=== PATIENT | male | born 1965 | race Two or more races ===

== ENCOUNTER 2023-04-28 22:21 | Emergency (ER) | payer SELFPAY ==
[~2023-04-28] VITALS: Ht 172.7 cm; Wt 74.8 kg
[2023-04-28 22:26] VITALS: BP 117/75; PULSE 98; RESP 16; TEMP 97.2; O2SAT 99
[2023-04-28 22:45] VITALS: BP 117/75; PULSE 98; RESP 16; TEMP 97.2; O2SAT 99
== END 2023-04-28 22:45 | disposition left against medical advice (07) ==
LOC: MED 22:21
DX: R07.9 Chest pain, unspecified (principal); Z53.21 Procedure and treatment not carried out due to patient leaving prior to being seen by health care provider
CPT/HCPCS: 93005; 99281